=== PATIENT | male | born 1990 | race Hispanic/Latino ===

== ENCOUNTER 2022-08-18 21:14 | Emergency (ER) | payer OTHER ==
[2022-08-18] MEDS ORDERED: LIDOCAINE 1% 20 ML MDV ONE (21:38)
[2022-08-18] MEDS ORDERED: TETANUS & DIPHTHERIA TOX,ADULT 0.5 ML VIAL ONE (21:38)
--- NOTE | 2022-08-19 01:09 | ER ---
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 Coronavirus screen: Vaccine status: Patient reports being unvaccinated. Ebola Screen: Patient negative for fever greater than or equal to 101.5 degrees Fahrenheit, and additional compatible Ebola Virus Disease symptoms. Initial Sepsis Screen: Does the patient meet any 2 criteria? No. Patient's initial sepsis screen is negative. Does the patient have a suspected source of infection? No. Patient's initial sepsis screen is negative. Risk Assessment: Do you want to hurt yourself or someone else? Patient reports no desire to harm self or others. 21:25 Method Of Arrival: Other 21:25 Acuity: YUE 4 kl 21:37 Onset of symptoms was August 18, 2022. as6 Triage Assessment: 21:29 General: Appears in no apparent distress. Behavior is calm, cooperative. Pain: kl Complains of pain in medial aspect of left hand. Historical: - Allergies: 21:28 No Known Allergies; kl - Home Meds: 21:28 None [Active]; kl - PMHx: 21:28 None; kl - PSHx: 21:28 None; kl - Immunization history:: Last tetanus immunization: > 10 years ago. - Social history:: Smoking status: Patient denies any tobacco usage or history of. - Family history:: not pertinent. Screenin:37 [facility] ED Fall Risk Assessment (Adult) Score/Fall Risk Level 0 - 2 = Low Risk. Abuse as6 screen: Denies threats or abuse. Denies injuries from another. Nutritional screening: No deficits noted. Tuberculosis screening: No symptoms or risk factors identified. Assessment: 21:36 General: Appears in no apparent distress. Behavior is calm, cooperative. Pain: as6 Complains of pain in left hand. Neuro: Level of Consciousness is awake, alert, obeys commands, Oriented to person, place, time, situation. Cardiovascular: Capillary refill < 3 seconds Patient's skin is warm and dry. Respiratory: Respiratory effort is even, unlabored, Respiratory pattern is regular, symmetrical. GI: No deficits noted. No signs and/or symptoms were reported involving the gastrointestinal system. : No deficits noted. No signs and/or symptoms were reported regarding the genitourinary system. EENT: No deficits noted. No signs and/or symptoms were reported regarding the EENT system. Musculoskeletal: No deficits noted. No signs and/or symptoms reported regarding the musculoskeletal system. Injury Description: Laceration sustained to medial aspect of left hand is clean, 2.6 to 7.5 cm long, a small amount of bleeding noted at this time. 22:56 Reassessment: Patient appears in no apparent distress at this time. as6 Vital Signs: 21:25 BP 121 / 68; Pulse 62; Resp 18; Temp 98.2(O); Pulse Ox 100% on R/A; Weight 63 kg (M); kl Height 5 ft. 7 in. ; Pain 10/10; 22:56 BP 115 / 68; Pulse 57; Resp 18 S; Pulse Ox 100% on R/A; as6 23:51 BP 123 / 83; Pulse 56; Resp 18 S; Pulse Ox 100% on R/A; as6 21:25 Body Mass Index 21.75 (63.00 kg, 170.18 cm) kl 21:25 Pain Scale: Adult ED Course: 21:24 Patient arrived in ED. kl 21:25 Edwin Zhou PA is PHCP. cp 21:25 Alex Lu MD is Attending Physician. cp 21:28 Isaias Salas, TOM is Primary Nurse. as6 21:28 Triage completed. kl 21:36 Arm band placed on. as6 21:37 Bed in low position. Call light in reach. as6 16 01:24 Patient did not have IV access during this emergency room visit. as6 01:24 Assist provider with laceration repair on medial aspect of left hand that was between as6 2.6 to 7.5 cm using sutures. Set up tray. Performed by Alex Lu MD Dressed with 4X4s, Kerlix, Patient tolerated well. 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 Exp: as6 08/14/2023. Lot #: [id number]. } Route: IM; Site: right deltoid; 08/19 01:23 Follow up: Response: No adverse reaction as6 00:47 Drug: Lidocaine Infiltration (1 %) 20 ml {Note: administered by provider .} Volume: 20 as6 ml; Route: Infiltration; :23 Follow up: Response: No adverse reaction as6 01:20 Drug: Ibuprofen PO 800 mg Route: PO; as6 01:23 Follow up: Response: No adverse reaction as6 01:20 Drug: Ondansetron PO 4 mg Route: PO; as6 01:23 Follow up: Response: No adverse reaction as6 01:20 Drug: Trimethoprim-Sulfamethoxazole PO (160 mg-800 mg (DS) 1 tablet Route: PO; as6 01:23 Follow up: Response: No adverse reaction as6 Medication: 08/18 21:35 Vaccine Information Statement (VIS) provided today. Questions and/or concerns as6 addressed. VIS edition date: October 09, 2020. Outcome: 08/19 01:08 Discharge ordered by sp4 01:24 Discharged to Law Enforcement as6 01:24 Condition: stable 01:24 Discharge instructions given to patient, Instructed on discharge instructions, follow up and referral plans. medication usage, wound care, Demonstrated understanding of instructions, follow-up care, medications, wound care, Prescriptions given X 1. 01:25 Patient left the ED. as6 Signatures: Gail Vergara RN RN kl Page, Corey, PA PA cp Slawson, Ashby, RN RN as6 Alex Lu MD MD sp4 Corrections: (The following items were deleted from the chart) 01:25 01:24 No provider procedures requiring assistance completed. as6 as6
--- NOTE | 2022-08-19 01:09 | EDPHYS ---
Physician Documentation [facility] Name: Nahid Fatima Age: 31 yrs Sex: Male : 1990 Arrival Date: 08/18/2022 Time: 21:14 Bed 8 Private MD: ED Physician Alex Lu HPI: 08/18 21:27 This 31 yrs old Male presents to ER via Unassigned with complaints of left sp4 hand laceration . 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 Patient reports additional abrasion to his left thumb, and left small finger. . Historical: - Allergies: 08/18 21:28 No Known Allergies; kl - Home Meds: 21:28 None [Active]; kl - PMHx: 21:28 None; kl - PSHx: 21:28 None; kl - Immunization history:: Last tetanus immunization: > 10 years ago. - Social history:: Smoking status: Patient denies any tobacco usage or history of. - Family history:: not pertinent. ROS: 08/19 01:19 Constitutional: Negative for fever, chills, and weight loss, MS/Extremity: Left hand sp4 laceration left hypothenar eminence, positive left small finger laceration proximal phalanx, positive left thumb proximal phalanx laceration. Skin: Positive for left hand laceration. All other systems are negative. Exam: 01:19 Constitutional: This is a well developed, well nourished patient who is awake, alert, sp4 and in no acute distress. Head/Face: Normocephalic, atraumatic. Eyes: Pupils equal round and reactive to light, extra-ocular motions intact. Lids and lashes normal. Conjunctiva and sclera are not injected. Cornea within normal limits. Periorbital areas with no swelling, redness, or edema. ENT: Nares patent. No nasal discharge, no septal abnormalities noted. Tympanic membranes are normal and external auditory canals are clear. Oropharynx with no redness, swelling, or masses, exudates, or evidence of obstruction, uvula midline. Mucous membranes moist. Neck: Trachea midline, no thyromegaly or masses palpated, and no cervical lymphadenopathy. Supple, full range of motion without nuchal rigidity, or vertebral point tenderness. Chest/axilla: Normal chest wall appearance and motion. Nontender with no deformity. No lesions are appreciated. Cardiovascular: Regular rate and rhythm with a normal S1 and S2. No gallops, murmurs, or rubs. Normal PMI, no JVD. No pulse deficits. Respiratory: Lungs have equal breath sounds bilaterally, clear to auscultation and percussion. No rales, rhonchi or wheezes noted. No increased work of breathing, no retractions or nasal flaring. Abdomen/GI: Soft, non-tender, with normal bowel sounds. No distension or tympany. No guarding or rebound. No evidence of tenderness throughout. Back: No spinal tenderness. No costovertebral tenderness. Skin: Warm, dry with normal turgor. Normal color with no rashes, no lesions, and no evidence of cellulitis. Positive for left hand laceration see below MS/ Extremity: Pulses equal, no cyanosis. Neurovascular intact. Full, normal range of motion. Left hypothenar eminence of the left hand contains 2 cm straight laceration diagonal orientation. There is a small half centimeter laceration left small finger proximal phalanx dorsal surface. There is a small half centimeter laceration left thumb proximal phalanx dorsal surface. There is no active bleeding on exam Neuro: Awake and alert, GCS 15, oriented to person, place, time, and situation. Cranial nerves II-XII grossly intact. Motor strength 5/5 in all extremities. Sensory grossly intact. Psych: Awake, alert, with orientation to person, place and time. Behavior, mood, and affect are within normal limits Vital Signs: 08/18 21:25 BP 121 / 68; Pulse 62; Resp 18; Temp 98.2(O); Pulse Ox 100% on R/A; Weight 63 kg (M); kl Height 5 ft. 7 in. ; Pain 10/10; 22:56 BP 115 / 68; Pulse 57; Resp 18 S; Pulse Ox 100% on R/A; as6 23:51 BP 123 / 83; Pulse 56; Resp 18 S; Pulse Ox 100% on R/A; as6 21:25 Body Mass Index 21.75 (63.00 kg, 170.18 cm) kl 21:25 Pain Scale: Adult kl Laceration: 08/19 01:06 Wound Repair of 2cm ( 0.8in ) subcutaneous laceration to dorsum of left hand. Linear sp4 shaped.. Hemostasis noted.. Distal neuro/vascular/tendon intact. Anesthesia: Wound infiltrated with 10 mls of 1% lidocaine. Wound prep: Extensive cleansing by me, Copious irrigation. Skin closed with 8 4-0 Silk using interrupted sutures and sterile technique. Dressed with 4x4's, Kerlix, pressure dressing. 01:19 Wound Repair of 0.5cm ( 0.2in ) subcutaneous laceration to dorsal aspect of proximal sp4 phalanx of left little finger. Linear shaped.. Distal neuro/vascular/tendon intact. Anesthesia: Wound infiltrated with 5 mls of 1% lidocaine. Wound prep: Moderate cleansing by me, Copious irrigation. Skin closed with 2 4-0 Silk using simple sutures and sterile technique. Dressed with 4x4's, Kerlix. Patient tolerated well. 01:19 Wound Repair of 0.5cm ( 0.2in ) subcutaneous laceration to dorsal aspect of proximal sp4 phalanx of left thumb. Irregularly shaped.. Distal neuro/vascular/tendon intact. Anesthesia: Wound infiltrated with 5 mls of 1% lidocaine. Wound prep: Moderate cleansing by nurse by me, Copious irrigation. Skin closed with 3 4-0 Silk using interrupted sutures and sterile technique. Dressed with 4x4's, Kerlix. Patient tolerated well. MDM: 08/18 21:25 Patient medically screened. 08/19 01:05 Data reviewed: vital signs, nurses notes. ED course: Left hand lacerations were sp4 repaired. Patient stable for discharge to custodial. 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 Exp: as6 08/14/2023. Lot #: [id number]. } Route: IM; Site: right deltoid; 08/19 01:23 Follow up: Response: No adverse reaction as6 00:47 Drug: Lidocaine Infiltration (1 %) 20 ml {Note: administered by provider .} Volume: 20 as6 ml; Route: Infiltration; : Follow up: Response: No adverse reaction as6 01:20 Drug: Ibuprofen PO 800 mg Route: PO; as6 01:23 Follow up: Response: No adverse reaction as6 01:20 Drug: Ondansetron PO 4 mg Route: PO; as6 :23 Follow up: Response: No adverse reaction as6 01:20 Drug: Trimethoprim-Sulfamethoxazole PO (160 mg-800 mg (DS) 1 tablet Route: PO; as08 04:23 Follow up: Response: No adverse reaction as6 Disposition Summary: 08/19/22 01:08 Discharge Ordered Location: Home sp4 Problem: new sp4 Symptoms: have improved sp4 Condition: Stable sp4 Diagnosis - Laceration without foreign body of left hand, initial encounter sp4 - Left hand laceration hypothenar eminence without foreign body, initial encounter sp4 Followup: sp4 - With: Private Physician - When: As needed - Reason: Discharge Instructions: - Discharge Summary Sheet sp4 - Laceration Care, Adult sp4 Forms: - Antibiotic Education sp4 Prescriptions: - Bactrim DS 800-160 mg Oral Tablet - take 1 tablet by ORAL route every 12 hours for 10 days; 20 tablet; Refills: 0, sp4 Product Selection Permitted Signatures: Gail Vergara RN RN Edwin Dong PA PA cp Slawson, Ashby, RN RN as6 Alex Lu MD MD sp4
[2022-08-19] MEDS ORDERED: SMZ./TMP. 800/160 MG TABLET ONE (01:19)
[2022-08-19] MEDS ORDERED: IBUPROFEN 400 MG TAB ONE (01:19)
[2022-08-19] MEDS ORDERED: ONDANSETRON 4 MG (ODT) TAB ONE (01:20)
[2022-08-19 01:29] VITALS: TEMP 98.2; O2SAT 100
[2022-08-19 01:32] VITALS: BP 123/83
== END 2022-08-19 01:25 | disposition home or self-care (01) ==
LOC: ER 21:14
PROC: 0HQGXZZ Repair Left Hand Skin, External Approach (ICD-10-PCS; principal; 2022-08-19)
DX: S61.412A Laceration without foreign body of left hand, initial encounter (principal); Z23 Encounter for immunization
CPT/HCPCS: 90471; 90714; 99284; 12002; Q0162; J2001